=== PATIENT | female | born 1995 | race Hispanic/Latino ===

== ENCOUNTER 2017-02-25 10:02 | Inpatient (IN) | payer MEDICAID ==
[2017-02-25] MEDS ORDERED: BRETHINE SUB-Q PRN (11:21)
[2017-02-25] MEDS ORDERED: MINERAL OIL PO PRN (11:21)
[2017-02-25] MEDS ORDERED: SUBLIMAZE IV PRN (11:21)
[2017-02-25] MEDS ORDERED: XYLOCAINE 2% INFILTRATI ONE (11:21)
[2017-02-25] MEDS ORDERED: STADOL IV PRN (11:21)
[2017-02-25] MEDS ORDERED: ePHEDrine SULFATE IV PRN ×2 (11:21→17:54)
[2017-02-25] MEDS ORDERED: ZOFRAN IV PRN ×2 (11:21→23:50)
[2017-02-25] MEDS ORDERED: BRETHINE IVP PRN (11:21)
--- NOTE | 2017-02-25 11:30 | History and Physical Report ---
History of Present Illness Date of examination: 02/25/17 Date of admission: 02/25/17 10:02 Chief complaint: My water broke History of present illness: Patient is a 22 year old who presents with complaint of rupture of membranes at 830 this morning. Her course has been uncomplicated except for later than normal presentation to care. Her labs have been normal. She is GBS negative Past History Past Medical History: other (anxiety and depression) Past Surgical History: no surgical history Family/Genetic History: none Social history: - Obstetrical History Expected Date of Delivery: 02/21/17 Actual Gestation: 40 Week(s) 4 Day(s) : 2 Para: 1 Number of Living Children: 1 Medications and Allergies Allergies Allergy/AdvReac Type Severity Reaction Status Date / Time sulfate Allergy Severe Swelling Uncoded 05/21/14 09:51 Home Medications Medication Instructions Recorded Confirmed Last Taken Type HYDROcodone/APAP 5-325 [[place] 2 each PO Q6H PRN #30 tablet 05/23/14 Unknown Rx 5-325 mg TAB] Ibuprofen [Motrin 600 MG tab] 600 mg PO Q6H #40 tablet 05/23/14 Unknown Rx Review of Systems All systems: negative Constitutional: weight gain Genitourinary: leakage of fluid, contractions - Vital Signs Vital signs: Vital Signs Temp Pulse Resp BP Pulse Ox 98.7 F 107 H 18 131/81 97 02/25/17 10:10 02/25/17 10:10 02/25/17 10:10 02/25/17 10:10 02/25/17 10:10 Temp Pulse Resp BP Pulse Ox 98.7 F 92 H 18 131/81 96 02/25/17 10:10 02/25/17 11:08 02/25/17 10:10 02/25/17 10:15 02/25/17 11:08 - Physical Exam Cardiovascular: Regular rate, Normal S1, Normal S2 Lungs: Positive: Clear to auscultation, Normal air movement Abdomen: Positive: normal appearance, soft, normal bowel sounds, other (obese) Genitourinary (Female): Positive: normal external genitalia, normal perenium Vulva: both: normal Vagina: Positive: normal moisture Uterus: Positive: normal size - Obstetrical FHR: auscultation normal Cervical Dilatation: 3 Cervical Effacement Percentage: 70 station: -3 Uterine Contraction Pattern: Irregular Uterine Contraction Intensity: Moderate Results Result Diagrams: 02/25/17 11:50 All other labs normal. Assessment and Plan IUP at 40.4 weeks with srom and meconium stained fluid. Admit to L&D. Augment with pitocin. Anticipate .
[2017-02-25] MEDS ORDERED: PITOCin/NS 30 UNIT/500ML 30 UNITS/500 ML BAG IV SCH (12:00)
[2017-02-25] MEDS ORDERED: PITOCin/NS 20 UNIT/1000ML DRIP 20 UNITS/1,000 ML BAG IV SCH (12:00)
[2017-02-25] MEDS: LACTATED RINGERS 1,000 ML IV SCH ×2 (12:09→20:57)
[2017-02-25] MEDS: PITOCin/NS 30 UNIT/500ML 30 UNITS/500 ML BAG IV SCH ×2 (12:18→12:52)
[2017-02-25 12:21] LABS: Hemoglobin 12.7 gm/dl (10.1-14.3); Mean Corpuscular HGB Conc 33 % (30-34); Mean Corpuscular Hemoglobin 28 pg (28-32); Mean Corpuscular Volume 83 fl (79-97); Platelet Count 182 K/mm3 (140-440); Red Blood Count 4.58 M/mm3 (3.65-5.03); Red Cell Distribution Width 15.1 % (13.2-15.2)
[2017-02-25] MEDS ORDERED: ePHEDrine SULFATE ONE (17:25)
[2017-02-25] MEDS ORDERED: NARCAN 2 MG/2 ML IV PRN (17:54)
[2017-02-25] MEDS ORDERED: BENADRYL IV PRN (17:54)
--- NOTE | 2017-02-25 17:54 | Anesthesia Consultation ---
Anesthesia Consult and Med Hx Date of service: 02/25/17 - Airway Anesthetic Teeth Evaluation: Good ROM Head & Neck: Inadequate Mental/Hyoid Distance: Adequate Intubation Access Assessment: Possibly Difficult - Pulmonary Exam CTA: Yes - Cardiac Exam Cardiac Exam: RRR - Pre-Operative Health Status ASA Pre-Surgery Classification: ASA3, Emergency Proposed Anesthetic Plan: Epidural, Spinal - Pulmonary Hx Asthma: No COPD: No Hx Pneumonia: No - Cardiovascular System Hx Hypertension: No - Central Nervous System Hx Seizures: No Hx Psychiatric Problems: No - Endocrine Hx Renal Disease: No Hx End Stage Renal Disease: No Hx Hypothyroidism: No Hx Hyperthyroidism: No - Hematic Hx Anemia: No Hx Sickle Cell Disease: No - Other Systems Hx Alcohol Use: No Hx Obesity: Yes (morbid)
[2017-02-25] MEDS ORDERED: fentaNYL-BUPIV 2 MCG/ML-0.125% 200 MCG/100 ML BAG EPIDURAL SCH (18:00)
[2017-02-25] MEDS ORDERED: NACL 0.9% 1000 ML 1,000 ML ONE (22:12)
--- NOTE | 2017-02-25 23:00 | Procedure Note ---
OB Delivery Note - Delivery Date of Delivery: 02/25/17 Surgeon: COLTON ATKINSON Estimated blood loss: 200cc - Vaginal Delivery presentation: vertex Delivery position: OA Intrapartum events: meconium Delivery induction: none Delivery augmentation: pitocin Delivery monitor: external FHT, external uterine Route of delivery: Delivery placenta: spontaneous Delivery cord: 3 umbilical vessels Episiotomy: none Delivery laceration: none Anesthesia: epidural Delivery comments: Viable female delivered over intact perineum. Weight 9 pounds 15 ounces. apgars 8,8. Infant handed to waiting NICU personnel due to meconium presence. had spontaneous cry. Placenta delivered spontaneously and intact with 3vc. NO lacerations. Patient tolerated procedure well. - A at 1 minute: 8 at 5 minutes: 8 Infant Gender: Female
[2017-02-25] MEDS ORDERED: TUCKS PAD TP PRN (23:50)
[2017-02-25] MEDS ORDERED: PHENERGAN PR PRN (23:50)
[2017-02-25] MEDS ORDERED: BENADRYL PO PRN (23:50)
[2017-02-25] MEDS ORDERED: DULCOLAX PR PRN (23:50)
[2017-02-25] MEDS ORDERED: SODIUM CHLORIDE FLUSH SYRINGE 10 ML IV NR (23:50)
[2017-02-25] MEDS ORDERED: TYLENOL PO PRN (23:50)
[2017-02-25] MEDS ORDERED: LANSINOH TP PRN (23:50)
[2017-02-25] MEDS ORDERED: MILK OF MAGNESIA PO PRN (23:50)
[2017-02-26] MEDS: MOTRIN PO SCH ×5 (00:31→23:38)
--- NOTE | 2017-02-26 08:25 | Progress Note ---
Subjective Date of service: 02/26/17 Interval history: 1st day after normal vaginal delivery Patient is in the bed, comfortable. Pain is well controlled with pain meds. Ambulated well. No residual neurological deficit. No anesthesia complications Objective - Constitutional Vitals: Vital Signs - 12hr 02/25/17 02/25/17 02/25/17 20:57 21:26 21:56 Temperature Pulse Rate 96 H 85 100 H Respiratory Rate Blood Pressure 106/51 95/51 107/59 Blood Pressure [Left] O2 Sat by Pulse Oximetry 02/25/17 02/25/17 02/25/17 22:54 22:56 23:01 Temperature Pulse Rate 121 H 124 H 120 H Respiratory Rate Blood Pressure 116/61 Blood Pressure [Left] O2 Sat by Pulse 98 98 Oximetry 02/25/17 02/25/17 02/25/17 23:06 23:09 23:11 Temperature Pulse Rate 116 H 108 H 108 H Respiratory Rate Blood Pressure 107/57 Blood Pressure [Left] O2 Sat by Pulse 97 97 Oximetry 02/25/17 02/25/17 02/25/17 23:16 23:21 23:24 Temperature Pulse Rate 112 H 99 H 104 H Respiratory Rate Blood Pressure 107/56 Blood Pressure [Left] O2 Sat by Pulse 98 96 Oximetry 02/25/17 02/25/17 02/26/17 23:26 23:28 00:37 Temperature 98.9 F Pulse Rate 110 H 102 H 92 H Respiratory 18 Rate Blood Pressure 105/65 Blood Pressure 104/58 [Left] O2 Sat by Pulse 97 Oximetry 02/26/17 05:40 Temperature 98 F Pulse Rate 74 Respiratory 20 Rate Blood Pressure Blood Pressure 103/67 [Left] O2 Sat by Pulse Oximetry - Labs CBC & Chem 7: 02/25/17 11:50
[2017-02-26] MEDS: NORCO 5/325 PO PRN ×2 (11:54→17:20)
[2017-02-26] MEDS: PRENATAL VITAMIN PO SCH (11:55)
[2017-02-26 12:17] LABS: Hematocrit 33.9 % (30.3-42.9); Hemoglobin 11.3 gm/dl (10.1-14.3)
[2017-02-26] MEDS: COLACE PO SCH (21:48)
[2017-02-27] MEDS: NORCO 5/325 PO PRN (04:59)
[2017-02-27] MEDS: MOTRIN PO SCH ×2 (05:16→15:59)
--- NOTE | 2017-02-27 10:07 | Progress Note ---
Assessment and Plan PPD 2 s/p . Doing well. Patient ready to go home today. also ready to be discharged. Subjective - Subjective Date of service: 02/27/17 Interval history: Patient is a 22 year old who presents with complaint of rupture of membranes at 830 this morning. Her course has been uncomplicated except for later than normal presentation to care. Her labs have been normal. She is GBS negative Patient reports: appetite normal, voiding normally, pain well controlled, ambulating normally [place]: doing well Objective - Vital Signs Latest vital signs: Vital Signs Temp Pulse Resp BP BP Pulse Ox 02/27/17 01:19 97.9 F 74 18 95/54 98 02/26/17 17:20 20 02/26/17 16:00 98.0 F 78 18 116/78 02/26/17 12:28 98.0 F 93 H 18 114/81 96 02/26/17 11:54 20 Intake and Output 02/26/17 02/27/17 02/27/17 22:59 06:59 14:59 Intake Total 240 Output Total 300 Balance -60 Intake: Oral 240 Output: Urine 300 Void 300 Other: Total, Intake Amount 240 Total, Output Amount 300 # Voids Void 1 1 - Exam Breasts: Present: deferred Cardiovascular: Present: Regular rate, Normal S1, Normal S2 Lungs: Present: Clear to auscultation, Normal air movement Abdomen: Present: normal appearance, soft, normal bowel sounds Vulva: both: normal Uterus: Present: normal, firm Extremities: Present: normal Incision: Present: intact
--- NOTE | 2017-02-27 10:10 | Discharge Summary ---
Providers - Providers Date of Admission: 02/25/17 10:02 Date of discharge: 02/27/17 Attending physician: COLTON ATKINSON Primary care physician: COLTON ATKINSON Hospitalization Reason for admission: active labor, rupture of membranes Delivery: Episiotomy: none Laceration: none complications: none Discharge diagnosis: IUP at term delivered [place] baby: female Hospital course: unremarkable Condition at discharge: Good Disposition: DC-01 TO HOME OR SELFCARE Plan - Discharge Medications Prescriptions: HYDROcodone/APAP 5-325 [[place] 5-325 mg TAB] 2 each PO Q6H PRN #30 tablet PRN Reason: Pain, Moderate (4-6) Ibuprofen [Motrin 600 MG tab] 600 mg PO Q6H #30 tablet - Provider Discharge Summary Activity: routine, no sex for 6 weeks, no heavy lifting 4 weeks, no strenuous exercise Diet: routine Instructions: routine Additional instructions: [] Smoking cessation referral if applicable(refer to patient education folder for contact #) [] Refer to [facility]'s [facility] Booklet Call your doctor immediately for: * Fever > 100.5 * Heavy vaginal bleeding ( >1 pad per hour) * Severe persistent headache * Shortness of breath * Reddened, hot, painful area to leg or breast * Drainage or odor from incision. * Keep incision clean and dry at all times and follow doctor's instructions regarding bathing/showering - Follow up plan Follow up: COLTON ATKINSON MD [Primary Care Provider] - 6 Weeks
[2017-02-27] MEDS: PRENATAL VITAMIN PO SCH (10:18)
[2017-02-27] MEDS: COLACE PO SCH (10:18)
[2017-02-27 18:28] VITALS: BP 93/51
== END 2017-02-27 16:15 | disposition home or self-care (01) | DRG 775 ==
LOC: LD 10:02 → OB 02-26 00:05
PROVIDERS: ADMIT Obstetrics & Gynecology; ATTEND Obstetrics & Gynecology
PROC: 10E0XZZ Delivery of Products of Conception, External Approach (ICD-10-PCS; principal; 2017-02-25)
PROC: 3E0R3BZ Introduction of Anesthetic Agent into Spinal Canal, Percutaneous Approach (ICD-10-PCS; 2017-02-25)
PROC: 30233S1 Transfusion of Nonautologous Globulin into Peripheral Vein, Percutaneous Approach (ICD-10-PCS; 2017-02-25)
PROC: 00HU33Z Insertion of Infusion Device into Spinal Canal, Percutaneous Approach (ICD-10-PCS; 2017-02-25)
DX: O77.0 Labor and delivery complicated by meconium in amniotic fluid (principal); O99.344 Other mental disorders complicating childbirth; F41.9 Anxiety disorder, unspecified; F32.9 Major depressive disorder, single episode, unspecified; O42.02 Full-term premature rupture of membranes, onset of labor within 24 hours of rupture; Z3A.40 40 weeks gestation of pregnancy; Z37.0 Single live birth; Z88.8 Allergy status to other drugs, medicaments and biological substances
CPT/HCPCS: 36415; 85014; 85018; 85027; 85461; 86592; 86850; 86900; 86901; 99211; G0463; J0595; J2405; J2590; J2790; J7030; J7120